=== PATIENT | male | born 1985 | race Caucasian/White ===

== ENCOUNTER → 2021-09-16 | Outpatient (CLI) | payer OTHER, BC ==
--- NOTE | 2021-09-16 16:30 | CONS ---
CONSULTATION DATE OF SERVICE: 09/16/2021 36-year-old gentleman has been evaluated in [facility] for possible obstructive sleep apnea-hypopnea syndrome. HISTORY OF PRESENT ILLNESS SLEEP-WAKE EVALUATION: SLEEP SCHEDULE: Patient's usual sleep schedule on weekdays from 11 p.m. to 6:00 am, on weekends from 12 midnight until 8 or 9:00 am. No problems with falling asleep. No TV in bedroom. The patient sleeps in different positions, including back, side and stomach. He snores. During the day, he drinks 1 coffee, usually does not take any naps. No history of hypnagogic hallucinations, sleep paralysis or cataplexy. PAST MEDICAL HISTORY: Positive for hypertension. PAST SURGICAL HISTORY: Arthroscopic knee surgery in 2003, tonsillectomy at age of 23. SOCIAL HISTORY: Negative for smoking, alcohol consumption occasional. FAMILY HISTORY: Sleep apnea by his mother, cancer. REVIEW OF SYSTEMS: Loud snoring, increasing blood pressure. PHYSICAL EXAMINATION: GENERAL: gentleman without distress. BP 146/84, HR 81, RR 18, height 5 feet 8-1/4 inches, weight 329.4 pounds, body mass index 49.7, temperature 97.1, oxygen saturation room air 98%. Oropharynx: Low position of soft palate, Mallampati 4. NECK: Extremely wide 20-2/3 inches in circumference. Neck: Supple, no JVD. Thyroid is not palpable. LUNGS: Clear to percussion and to auscultation. Good air exchange. No wheezing or rhonchi. HEART: S1, S2 regular. No murmurs, gallops, or rubs. ABDOMEN: Obese. Soft and nontender. Bowel sounds are present. No organomegaly appreciated. EXTREMITIES: No clubbing or cyanosis. [employer] HELPER: Awake, alert, and oriented X3. Cranial nerves 2 to 7 intact. There is no fasciculation or atrophy. noted. No focal deficits observed. IMPRESSION: 1. Loud snoring, low position of soft palate wide neck, 20 and 2/3 inches in circumference, possible obstructive sleep apnea-hypopnea syndrome. 2. Hypertension. 3. Morbid obesity, body mass index 49.7. 4. Status post left knee arthroscopic surgery. PLAN: 1. Polysomnography for evaluation of patient's breathing during sleep, check for possible obstructive sleep apnea and for possibility of obesity hypoventilation. 2. CPAP/BiPAP titration if sleep study confirms obstructive sleep apnea-hypopnea syndrome. 3. Preferable position during sleep on the side. 4. No driving if patient feels any sleepiness. 5. I will see patient for follow up visit to explain results of testing and following plan. Thank you very much for referring this patient for consultation. Sincerely, Dawson Jones MD, PhD, FAASM Diplomat of [place] [employer] Sleep Medicine Board of [place] [employer] [facility] Diamond MMODL / ASHLEYN: [id number] /
== END ==
LOC: SLEEP 14:29
PROVIDERS: ATTEND Internal Medicine
DX: R06.83 Snoring (principal); I10 Essential (primary) hypertension; E66.01 Morbid (severe) obesity due to excess calories; Z68.42 Body mass index [BMI] 45.0-49.9, adult; Z98.890 Other specified postprocedural states
CPT/HCPCS: 99202; 99211

== ENCOUNTER → 2024-03-23 | Outpatient (CLI) | payer OTHER ==
--- NOTE | 2024-03-24 00:33 | MR ---
EXAMINATION TYPE: MR lumbar spine wo con DATE OF EXAM: 03/23/2024 COMPARISON: NONE HISTORY: Low back pain and some numbness in right leg and foot. Lumbago with right-sided sciatica. TECHNIQUE: Multiplanar, multisequence imaging of the lumbar spine is performed without IV contrast. FINDINGS: Sagittal images of the lumbar spine show vertebral body heights and alignment to appear sat isfactory. Multilevel disc desiccation L2-L3 through L5-S1 levels. Disc space heights are fairly well preserved. Increased signal posteriorly consistent with annular tear at L5-S1 level. The conus medul tom is normal in position and signal ending inferior T12 level. The bone marrow signal intensity i s within normal limits. Axial images show at T12-L1 and L1-L2 levels to appear within normal limits. Axial images at L2-L3 level show mild broad disc bulge with left paracentral disc protrusion componen t effacing the anterior thecal sac and mild facet arthropathy and ligamentum flavum hypertrophy. Bila teral neural foramina are patent. Axial images at the L3-L4 level shows mild broad-based posterior disc protrusion but the spinal canal is preserved and bilateral neural foramina are patent. Axial images at the L4-L5 level show mild facet arthropathy bilaterally. There is mild broad disc bul ge with more prominent right foraminal disc protrusion component effacing the central right L5 nerve. Central right L5 nerve appears asymmetrically enlarged. Mild bilateral neural foraminal narrowing is seen. Axial images at L5-S1 level shows tiny central disc protrusion. Spinal canal is preserved and there i s increased epidural fat. Bilateral neural foramina are patent. Enlargement of the right S1 nerve als o felt present sagittal image 10. IMPRESSION: Multilevel degenerative change in the mid to lower lumbar spine as detailed above. Asymme tric prominence of the right L5 and S1 nerves is present of uncertain clinical significance. Some mas s effect particularly on the central right L5 nerve at L4-L5 level is seen.
== END | disposition home or self-care (01) ==
LOC: RADMRIMAIN 16:18
PROVIDERS: ATTEND Internal Medicine
DX: M47.896 Other spondylosis, lumbar region (principal); M51.27 Other intervertebral disc displacement, lumbosacral region; M54.41 Lumbago with sciatica, right side
CPT/HCPCS: 72148

== ENCOUNTER → 2024-06-06 | Outpatient (CLI) | payer OTHER ==
[2024-06-06 15:08] VITALS: BP 173/100; PULSE 73; RESP 16; TEMP 97.1
--- NOTE | 2024-06-13 11:37 | P.PAINPG ---
PQRS Measure Charge Sheet Comment: HISTORY OF PRESENT ILLNESS: A 39 yr old male w and child at side as a referral from [facility] presents today w severe and chronic LBP > 3 mo secondary to radiculopathy, spondylosis and facet arthropathy without myelopathy for evaluation. Pt states tingling is provoked at 7 /10 in intensity, constant, localized in the lumbar spine, predominantly axial, tingly in character w occasional shooting towards the R knee. Tingling has no provocation. Pain is alleviated by PT x 6 wks which ended in January 2024, physician guided home exercises 4 times weekly since January 2024, heat, mediations (Robaxin, Steroid dose-pack), manual massage, repositioning and rest . PMH: OA, HTN PSH: Tonsillectomy/ Addenoidectomy (2008), Knee Surgery (2003), [place] [facility] SH: No tobacco use, Rare ETOH use, No illicit drug use. w child. FH: Mo- DM All: See list Meds: See list REVIEW OF ORGAN SYSTEMS: CONSTITUTIONAL: No fevers or chills. No recent weight loss. NEUROLOGICAL: + numbness and tingling along the distal extremities. No seizure disorders or headaches. MUSCULOSKELETAL: + pain PSYCHIATRIC: Denies current depression or suicidal thoughts. Physical Examinations : Constitutional : Cooperative , not in acute distress . Neurologic : Cranial nerve II to XII intact. No focal neurological deficits. Psychiatric : alert & oriented x 3. Matching mood & appropriate affect. Judgment & insight intact. Musculoskeletal : Cervical Spine Motor strength in the deltoid and biceps: Normal right side. Normal Left side Motor strength biceps and the wrist extensors: Normal right side . Normal left side Motor strength in the triceps muscle: Normal right side. Normal left side Deep tendon reflexes: Normal at the biceps. Normal at Brachioradialis. Normal at triceps Vertebral body tenderness to deep palpation over Cervical facet loading test: positive bilaterally Spurling test: positive bilaterally Neck distraction test: positive bilaterally Eleuterio sign: positive bilaterally Lumbar spine Motor strength lower extremities ,thigh and legs 5/5 Right side , 5/5 Left side Deep tendon reflexes : Normal Knee Jerk. Normal Ankle Jerk Vertebral body tenderness over L4 Ag Test positive R L4-L5 Lumbar facet Loading Test: positive Right / positive Left Range of motion of the lumbar spine Flexion 30 degrees, extension 10 degrees Straight Leg Raise test: Left/ Right positive at degrees Katya test: positive right / positive left. Severe tenderness over the Sacroiliac joint on the Right / Left sides Gaenslen test: positive bilaterally Seated flexion test: positive bilaterally. Sacral spine : Severe tenderness over the Sacroiliac joint: right side / left side Range of motion: Flexion of the lumbar spine <60 degrees Range of motion: Extension of the lumbar spine <20 degrees Gaenslen's Test positive Katya test: positive right side / left side Thigh Thrust Test Sacral Thrust Test Imaging: MRI non contrast lumbar spine from 03/23/24 reviewed Assessment/ Plan : Lumbar radiculopathy Recommendation of R TFESI L4-L5 #1. Risks, benefits of procedure discussed and patient verbalized understanding. Admits to anti- coagulant use or medical history of diabetes. Protocol for discontinuation/ continuation of medications zeny procedure discussed. \All questions answered. I have spent greater than 30 minutes on patient care today. Dr Rolon was available by phone for the evaluation of this patient. The time was used to review the medical records including relevant urine studies and Prescription history (MAPs), review of the available imaging, evaluation and examination of the patient, coordination of care with the medical staff and if applicable referring physicians, as well as creation of the medical record Controlled Substance Measures - Controlled Substance Measures Is patient prescribed a controlled substance at discharge?: No
== END ==
LOC: PNWHC3 13:49
PROVIDERS: ATTEND Specialist
DX: M47.26 Other spondylosis with radiculopathy, lumbar region (principal)
CPT/HCPCS: 99202

== ENCOUNTER → 2024-06-29 | Day surgery (SDC) | payer OTHER ==
[2024-06-27 09:09] VITALS: BMI 43.2
[~2024-06-29] MED LIST: DEXAMETHASONE SOD PHOSPHATE 10 MG/ML 1 ML VIAL ONE; IOPAMIDOL M200 10 ML VIAL ONE; LACTATED RINGERS 1,000 ML IV SCH
[2024-06-29 12:20] VITALS: RESP 16; TEMP 97.8
--- NOTE | 2024-06-29 12:35 | P.PCN ---
Date of Procedure: 06/29/24 Description of Procedure: PROCEDURE: 1) right sided L4-L5 Transforaminal epidural steroid injection under fl uoroscopic guidance, 2) Epidurogram SURGEON: Geremias Burns METHODS ENGINEER: None ANESTHESIA: Local , and IV sedation: None EBL: None. Specimen removed: None Fluoroscopic image: Saved to electronic medical records PROCEDURE INDICATION: The patient with continued lumbar pain with radiculopathy, and intervertebral disc disease without myelopathy that has failed to respond to adequate conservative management. PROCEDURE DESCRIPTION: The patient was seen and identified in the preoperative area. Risks, benefits, complications, and alternatives were discussed with the patient. The patient agreed to proceed with the procedure and signed the consent. IV was started, and vital signs were stable. Patient was taken to the OR and time out was completed. The patient was placed in the prone position on procedure table and a pillow was placed under the abdomen to reduce lumbar lordosis. The lumbosacral area was prepped with ChloraPrep 1 and draped in the usual sterile fashion. Critical pause was taken. Vital signs were closely monitored during the procedure. Using 20 degree ipsilateral oblique fluoroscopy, the chin of the Xavier dog of L4 was identified, and the skin and deeper tissues just below was localized with 4 ml of 1% lidocaine. 22-guage 5-inch spinal needles were used for the procedure. The needle was guided by fluoroscopy just underneath the chin of the Xavier dog of L4 . Under AP fluoroscopy, the needle was advanced to the 6 o'clock position of the L4 pedicle. After negative aspiration of CSF and blood and with no paresthesias, 1.5 mL of Isovue-200 contrast dye was injected with good anterior epidural spread and outlining of the L4 nerve root. After negative aspiration 3 mL of block solution injected . Block solution contained 10 mg of dexamethasone mixed with 2 mL of normal saline preservative-free. Needle was removed intact, skin was cleansed, and bandage was applied. COMPLICATIONS: None. DISPOSITION : The patient was placed in a supine position and transferred to the recovery area in a stable condition for observation and was discharged from the recovery room after meeting discharge criteria. Home discharge instructions given to the patient by the staff. The patient was reexamined prior to discharge. The patient will schedule follow-up in the clinic in 4 weeks' duration
[2024-06-29 12:43] VITALS: BP 124/73; PULSE 74
--- NOTE | 2024-06-29 13:15 | FL ---
EXAMINATION TYPE: FL guided pain mgmt statistic DATE OF EXAM: 06/29/2024 12:46 PM COMPARISON: Pre Operative Images if available both CT/MRI or plain film CLINICAL INDICATION: Male, 39 years old with history of M54.16; TECHNIQUE: FL guided pain mgmt statistic, multiple fluoroscopic images provided for procedure. Total fluoroscopy time: 16.6 seconds Total submitted images to PACS: 6 DAP: [id number] mGym2 Gycm2 uGym2 cGycm2 or equivalent. FINDINGS: Fluoroscopic images during injection for pain management demonstrate multilevel degeneration changes throughout the spine. No evidence for fracture. No acute process identified. IMPRESSION: 1. No evidence for intraoperative complication. 2. Please see the operative/procedural note for further details. [facility], , 06/29/2024 1:13 PM
== END ==
LOC: ORPAIN 11:49
DX: M54.16 Radiculopathy, lumbar region
CPT/HCPCS: 64483

== ENCOUNTER → 2024-07-19 | Outpatient (CLI) | payer OTHER ==
[2024-07-19 13:36] VITALS: BP 115/72; PULSE 77; RESP 17; TEMP 98
--- NOTE | 2024-07-19 15:06 | P.PAINPG ---
PQRS Measure Charge Sheet Comment: HISTORY OF PRESENT ILLNESS: A 39 yr old male w and child at side presents today w severe and chronic LBP > 3 mo secondary to radiculopathy, spondylosis and facet arthropathy without myelopathy for evaluation s/p R TFESI L4-L5 #1. Pt states he experienced 75 % pain relief x 3 wks s/p procedure. Pt states tingling is provoked at 1 /10 in intensity, constant, localized in the lumbar spine, predominantly axial, tingly in character w occasional shooting towards the back of the RLE. Tingling has no provocation. Pain is alleviated by PT x 6 wks which ended in January 2024, physician guided home exercises 4 times weekly since January 2024, heat, mediations, manual massage, repositioning and rest . Interventional procedures include R TFESI L4-L5 x1 Medications include Robaxin, Steroid dose-pack REVIEW OF ORGAN SYSTEMS: CONSTITUTIONAL: No fevers or chills. No recent weight loss. NEUROLOGICAL: + numbness and tingling along the distal extremities. No seizure disorders or headaches. MUSCULOSKELETAL: + pain PSYCHIATRIC: Denies current depression or suicidal thoughts. Physical Examinations : Constitutional : Cooperative , not in acute distress . Neurologic : Cranial nerve II to XII intact. No focal neurological deficits. Psychiatric : alert & oriented x 3. Matching mood & appropriate affect. Judgment & insight intact. Musculoskeletal : Cervical Spine Motor strength in the deltoid and biceps: Normal right side. Normal Left side Motor strength biceps and the wrist extensors: Normal right side . Normal left side Motor strength in the triceps muscle: Normal right side. Normal left side Deep tendon reflexes: Normal at the biceps. Normal at Brachioradialis. Normal at triceps Vertebral body tenderness to deep palpation over Cervical facet loading test: positive bilaterally Spurling test: positive bilaterally Neck distraction test: positive bilaterally Eleuterio sign: positive bilaterally Lumbar spine Motor strength lower extremities ,thigh and legs 5/5 Right side , 5/5 Left side Deep tendon reflexes : Normal Knee Jerk. Normal Ankle Jerk Vertebral body tenderness over L4 Ag Test positive R L4-L5 Lumbar facet Loading Test: positive Right / positive Left Range of motion of the lumbar spine Flexion 30 degrees, extension 10 degrees Straight Leg Raise test: Left/ Right positive at degrees Katya test: positive right / positive left. Severe tenderness over the Sacroiliac joint on the Right / Left sides Gaenslen test: positive bilaterally Seated flexion test: positive bilaterally. Sacral spine : Severe tenderness over the Sacroiliac joint: right side / left side Range of motion: Flexion of the lumbar spine <60 degrees Range of motion: Extension of the lumbar spine <20 degrees Gaenslen's Test positive Katya test: positive right side / left side Thigh Thrust Test Sacral Thrust Test Imaging: MRI non contrast lumbar spine from 03/23/24 reviewed Assessment/ Plan : Lumbar radiculopathy Will manage residual pain and may RTC on an as needed basis. All questions answered. I have spent greater than 30 minutes on patient care today. Dr Rolon was available by phone for the evaluation of this patient. The time was used to review the medical records including relevant urine studies and Prescription history (MAPs), review of the available imaging, evaluation and examination of the patient, coordination of care with the medical staff and if applicable referring physicians, as well as creation of the medical record PQRS Narrative: Hx Alcohol Use (MH) No Home Medications: Ambulatory Orders lisinopriL 30 mg PO DAILY 06/06/24 Ibuprofen [Motrin Ib] 200 mg PO Q8H PRN 06/27/24 Omeprazole Magnesium [PriLOSEC OTC] 20 mg PO DAILY PRN 06/27/24 Controlled Substance Measures - Controlled Substance Measures Is patient prescribed a controlled substance at discharge?: No
== END ==
LOC: PNWHC3 13:14
PROVIDERS: ATTEND Specialist
DX: M47.26 Other spondylosis with radiculopathy, lumbar region (principal)
CPT/HCPCS: 99211

== ENCOUNTER → 2024-09-05 | Outpatient (CLI) | payer OTHER ==
[2024-09-05 14:06] VITALS: BP 159/84; PULSE 74; RESP 16; TEMP 97.2
--- NOTE | 2024-09-05 14:21 | P.PROGSL ---
Subjective DATE: 09/05/2024 FOLLOW UP VISIT. I saw patient in 2020. In September 2021 patient had polysomnogram which showed severe obstructive sleep apnea, but secondary to family issues patient did not proceed further treatment at the time. Patient continued to have loud snoring, multiple awakenings during the sleep.. . Poynette sleepiness scale is 8. MEDICATIONS: Please see below During physical exam: GENERAL: A pleasant patient without any distress. VITAL SIGNS: Please see below, weight 325 pounds, BMI 47.3. HEENT: PERRLA, EOMI, stimulus soft palate Mallampati 4. NECK: Supple. No JVD. LUNGS: Clear to percussion and to auscultation. Good air exchange. No wheezing or rhonchi. HEART: S1, S2 regular. ABDOMEN: Soft and nontender. EXTREMITIES: No clubbing or cyanosis. VENEER DRIER: Awake, alert, and oriented x3. No focal deficit. Impressions: 1. Loud snoring, multiple awakenings from sleep, extremely low position of soft palate Mallampati 4, wide neck more than 20 inches. Obstructive sleep apnea hypopnea syndrome 2. Obesity, BMI 47.3. 3. Hypertension. 4. Status post left knee arthroscopic surgery. Plan: 1. Polysomnography for evaluation of patient breathing during the sleep 2. Sleep hygiene with regular time in bed for at least 8 hours. 3. Aggressive losing weight 4. Precautions related to driving. No driving if feel any sleepiness. Patient is aware about civil and criminal liability for unsafe driving, promised to follow recommendations. 5. Following plan after reading sleep study. Thank you very much for allowing me to participate in the management of your patient. Dawson Jones MD, PhD, FAASM. Diplomat of [place] [employer], Sleep Medicine Board by [place] [employer] Head Of Marketing of [facility] [place] cc: Aroldo Olguin MOTOR VEHICLE LECTURERCésarC Objective - Vital Signs Vital Signs: Vital Signs Temp 97.2 F L 09/05/24 14:05 Pulse 74 09/05/24 14:05 Resp 16 09/05/24 14:05 BP 159/84 09/05/24 14:05 Pulse Ox 98 09/05/24 14:05 FiO2 Intake & Output 09/04/24 09/05/24 09/05/24 18:59 06:59 18:59 Weight 147.418 kg Home Medications: Home Medications Medication Instructions Recorded Confirmed Type lisinopriL 30 mg PO DAILY 06/06/24 09/05/24 History Ibuprofen [Motrin Ib] 200 mg PO Q8H PRN 06/27/24 06/29/24 History Omeprazole Magnesium [PriLOSEC OTC] 20 mg PO DAILY PRN 06/27/24 06/29/24 History
== END ==
LOC: 3 N SLEEP 13:45
PROVIDERS: ATTEND Internal Medicine
DX: G47.33 Obstructive sleep apnea (adult) (pediatric) (principal); E66.9 Obesity, unspecified; Z68.42 Body mass index [BMI] 45.0-49.9, adult; I10 Essential (primary) hypertension; Z98.890 Other specified postprocedural states
CPT/HCPCS: 99212

== ENCOUNTER 2024-10-03 20:00 | Outpatient (CLI) | payer OTHER ==
--- NOTE | 2024-10-04 13:49 | P.PCN ---
Description of Procedure: POLYSOMNOGRAPHY REPORT PROCEDURE(S)/DATE(S): Polysomnography 10/03/2024 CLINICAL: Patient has been seen in the sleep center for evaluation of obstructive sleep apnea-hypopnea syndrome. Please see my consultation. Sleep study has been done for evaluation of patient breathing during the sleep. PROCEDURE: The standard montage for clinical polysomnography included the electroencephalogram, the electrooculogram, the mentalis surface electromyography and Lead II cardiography. The respiratory battery consisted of measurements of nasal/buccal air flow, pressure transducer measurements from nose, thoracic and/or abdominal effort and intercostal surface electromyography. Video monitoring has been done to check for any parasomnia events. Nocturnal oxyhemoglobin saturations were obtained by finger oximetry. Step-lopez titration with positive airway pressure was utilized to control the respiratory events, if necessary. RESULTS: During the diagnostic sleep study sleep efficiency was normal 91.3%. Latency to sleep onset was short at 5.5 min. Sleep architecture showed stage NI was extremely high 57.9%, Delta sleep was absent 0%, REM sleep was decreased to 9.5%. Respiratory channel showed 1 obstructive apneas, 0 mixed apneas, 0 central apneas, 285 hypopneas with lowest oxygen level 82%. Total apnea hypopnea index was 49.5. Heart rate was in the range between 60 and 79, average 69. EMG showed 8.1 periodic limb movements per hour with 0.3 micro-arousals per hour. IMPRESSIONS: 1. Severe obstructive sleep apnea hypopnea syndrome. 2. No significant periodic limb movements have been documented. Please see other impressions from consultation PLAN: 1. The patient will have PAP titration for correction of respiratory abnormalities during the sleep. 2. Losing weight program. 3. Sleep hygiene with regular time in bed for at least 7-1/2 hours. 4. No driving if feeling sleepiness. Thank you very much for allowing me to participate in the management of your patient. Sincerely, Dawson Jones MD, PhD, FAASM. Diplomat of [employer] [place] Board [employer] Sleep Medicine, Sleep Medicine Board by [employer] [place] Board of Internal Medicine Processing Associate [facility] [place] cc: Trenton Win MD
== END 2024-10-04 05:25 | disposition home or self-care (01) ==
LOC: 3 N SLEEP 20:00
PROVIDERS: ATTEND Internal Medicine
DX: G47.33 Obstructive sleep apnea (adult) (pediatric) (principal); G47.61 Periodic limb movement disorder; Z99.89 Dependence on other enabling machines and devices
CPT/HCPCS: 95810

== ENCOUNTER 2024-11-14 19:54 | Outpatient (CLI) | payer OTHER ==
--- NOTE | 2024-11-15 11:42 | P.PCN ---
Description of Procedure: CLINICAL: Titration with positive air pressure has been done for correction of respiratory abnormalities during sleep. DESCRIPTION OF PROCEDURE: The standard montage for clinical polysomnography included the electroencephalogram, the electrocardiogram, the mentalis surface electromyography and Lead II cardiography. The respiratory battery consisted of measurements of nasal /buccal air flow, pressure transducer measurements from the nose, thoracic and /or abdominal effort and intercostal surface electromyography. Video monitoring has been done to check for any parasomnia events. Nocturnal oxyhemoglobin saturations were obtained by finger oximetry. Step-lopez titration with positive airway pressure was utilized to control respiratory events. Raw data of sleep recording has been reviewed and is adequate. RESULTS: Sleep efficiency was normal 93.0%. Latency to sleep onset was short at 6.0 minutes.]. Sleep architecture showed stage N1 was normal 8.9%, Delta sleep was extremely short 0.1%, REM sleep was not high range 29.9%. Heart rate was minimum 61 BPM, maximum 74 BPM, average 67 BPM. EMG showed 0 periodic limb movements per hour. PAP titration have been done with CPAP up to the pressure 14 cm H2O. The best results were at the pressure 10 cm H2O. Apnea hypopnea index reduced to 1.2. IMPRESSION: 1. Obstructive sleep apnea hypopnea syndromeon controle with PAP treatment. 2. No significant periodic limb movements have been documented. Please see other impressions from consultation. PLAN: 1. The patient will have treatment with positive air pressure equipment with the level of pressure AutoPap 5-14 cm H2O and should use it every night for the whole night. 2. Watching and losing weight. 3. Sleep hygiene with regular time in bed for at least 8 hours. 4. No driving if feeling any sleepiness. 5. I will see the patient for follow up visit to explain the results of the test, recommendations, check compliance with treatment and make any necessary adjustment related to mask fitting, pressure and humidification. Thank you very much for allowing me to participate in the management of your patient. Sincerely, Dawson Jones MD, PhD, FAASM Diplomat of [place] [employer] Sleep Medicine Board of [place] [employer] Circulation Director of [facility] [place] cc: Ventura Morgan MD, Sharif BLEDSOE
== END 2024-11-15 05:25 | disposition home or self-care (01) ==
LOC: 3 N SLEEP 19:54
PROVIDERS: ATTEND Internal Medicine
DX: G47.33 Obstructive sleep apnea (adult) (pediatric) (principal)
CPT/HCPCS: 95811

== ENCOUNTER → 2025-02-06 | Outpatient (CLI) | payer OTHER ==
[2025-02-06 11:57] VITALS: BP 129/77; PULSE 72; RESP 18; TEMP 98
--- NOTE | 2025-02-06 12:20 | P.PROGSL ---
Subjective DATE: 02/06/2025 FOLLOW UP VISIT. Patient with obstructive sleep apnea hypopnea syndrome return to sleep center for follow-up visit. Patient had recently sleep studies, which showed that he has severe sleep apnea. I discussed results of sleep studies with patient in details. Today is his first visit after he was started on treatment with CPAP. Information from previous visit have been reviewed. Patient is using PAP equipment every night for the whole night, getting PAP supplies in time. Patient feels better in the morning after awakenings after sleep with CPAP. The patient does not have significant problems with the mask, PAP unit and humidification. [place] sleepiness scale is 2, which is perfect. I checked information from PAP unit. PAP unit pressure maximal inspiratory pressure 15, minimal expiratory pressure 7, average pressure 13.8 cm H2O. Usage is 100% for more then 4 hours, average 6.75 hours per night. Leak is 2.0 l/m, which is in acceptable range. Apnea Hypopnea Index is 0.9, which is normal. MEDICATIONS have been reviewed, please see below. During physical exam: GENERAL: A pleasant patient without any distress. VITAL SIGNS: Please see below, weight is 330.2 lbs. HEENT: PERRLA, EOMI.low position of soft palate, Mallapati 4 . NECK: Supple. No JVD. LUNGS: Clear to percussion and to auscultation. Good air exchange. No wheezing or rhonchi. HEART: S1, S2 regular. ABDOMEN: Soft and nontender. Obese EXTREMITIES: No clubbing or cyanosis. 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 No focal deficit. Impressions: 1. Obstructive sleep apnea-hypopnea syndrome. Patient demonstrated great compliance with treatment, benefiting from treatment. 2. Obesity, BMI around 48, patient increased weight 25 pounds comparing with previous visit. 3. Hypertension. 4. Status post left knee arthroscopic surgery. Plan: 1. Continue using PAP equipment every night for the whole night. 2. Sleep hygiene with regular time in bed for at least 7.5-8 hours 3. PAP unit should stay lower then position of the head. 4. Advised patient to remove all remaining water from humidifier canister daily and make it dry after each usage. Refill canister with fresh distilled water before each usage. 5. Watching weight. 6. Precautions related to driving. No driving if feel any sleepiness. 7. I will maintain prescription for PAP supplies including mask, tube, filters. 8. Follow up visit in 6 months or earlier if patient has any problems. Thank you very much for allowing me to participate in the management of your patient. Dawson Jones MD, PhD, FAASM. Diplomat of [place] [employer], Sleep Medicine Board by [place] [employer] [facility] [place] Objective - Vital Signs Vital Signs: Vital Signs Temp 98.0 F 02/06/25 11:56 Pulse 72 02/06/25 11:56 Resp 18 02/06/25 11:56 BP 129/77 02/06/25 11:56 Pulse Ox 99 02/06/25 11:56 FiO2 Intake & Output 02/05/25 02/06/25 02/06/25 18:59 06:59 18:59 Weight 149.742 kg Home Medications: Home Medications Medication Instructions Recorded Confirmed Type lisinopriL 30 mg PO DAILY 06/06/24 09/05/24 History Ibuprofen [Motrin Ib] 200 mg PO Q8H PRN 06/27/24 06/29/24 History Omeprazole Magnesium [PriLOSEC OTC] 20 mg PO DAILY PRN 06/27/24 06/29/24 History
== END ==
LOC: 3 N SLEEP 11:35
PROVIDERS: ATTEND Internal Medicine
DX: G47.33 Obstructive sleep apnea (adult) (pediatric) (principal); E66.9 Obesity, unspecified; I10 Essential (primary) hypertension; Z98.890 Other specified postprocedural states; Z99.89 Dependence on other enabling machines and devices; Z68.42 Body mass index [BMI] 45.0-49.9, adult
CPT/HCPCS: 99212

== ENCOUNTER → 2025-04-25 | Outpatient (CLI) | payer OTHER ==
--- NOTE | 2025-04-25 14:36 | MR ---
EXAMINATION TYPE: MR lumbar spine wo con DATE OF EXAM: 04/25/2025 9:47 AM COMPARISON: None. CLINICAL INDICATION: Male, 40 years old with history of M48.062 stenosis, Low back pain into RT side x2 years IV Contrast: cc (None if empty) TECHNIQUE: Multiplanar, multisequence images of the lumbar spine were acquired without IV contrast. L1-L2: Normal disc appearance without desiccation. No herniation, protrusion or disc bulging. No ca nal stenosis is present. Foramina are patent bilaterally. L2-L3: Mild disc desiccation with minimal left paracentral disc bulge or protrusion. Minimal effaceme nt of ventral thecal sac. No herniation or central stenosis appreciated. No foraminal encroachment. L3-L4: Moderate disc desiccation without significant disc bulge. No herniation or protrusion. No cent ral stenosis or foraminal encroachment. L4-L5: Mild to moderate disc desiccation. Subligamentous disc herniation paracentral to the right manuela suring 7 mm in AP dimension and 1 cm in transverse dimension. There is right lateral recess stenosis as well as right foraminal encroachment and edema of the exiting nerve root. No shade central stenosi s appreciated. L5-S1: Moderate disc desiccation with right paracentral disc herniation noted measuring 5 mm AP dimen migel. Mild right lateral recess stenosis. No central stenosis noted. Lumbar segments are intact. No paraspinal masses are identified. Conus medullaris has a normal appe arance. IMPRESSION: 1. Multilevel degenerative disc disease. 2. Disc herniation at L4-5 and L5-S1 as discussed above with right lateral recess stenosis. Disc prot rusion paracentrally to the left at L2-3. [facility], , 04/25/2025 2:33 PM
== END | disposition home or self-care (01) ==
LOC: RADMRIMAIN 08:23
PROVIDERS: ATTEND Orthopaedic Surgery Orthopaedic Surgery of the Spine
DX: M48.062 Spinal stenosis, lumbar region with neurogenic claudication (principal); M51.360 Other intervertebral disc degeneration, lumbar region with discogenic back pain only; M51.26 Other intervertebral disc displacement, lumbar region; M51.27 Other intervertebral disc displacement, lumbosacral region
CPT/HCPCS: 72148